=== PATIENT | male | born 1945 | race Caucasian/White ===

== ENCOUNTER 2025-03-29 07:20 | Day surgery (SDC) | payer OTHER, SELFPAY ==
[2025-03-29] VITALS (13 sets, daily range): BP systolic 112–125; BP diastolic 56–82; BMI 31.3
[2025-03-29] MEDS: NSS 268 ML IV (07:54)
[2025-03-29] MEDS: LOW STRENGTH ASPIRIN 324 MG PO (08:03)
--- NOTE | 2025-03-29 08:26 | CONSULT.STRU ---
Addendum entered and electronically signed by CLINTON Herrera 03/29/25 11:58:
From a symptomatology standpoint, patient describes increased Fatigue and FLORES.
Original Note:
Consultation
-
Date/Time Consultation Requested: 03/29/2025
Date/Time Consultation Performed: 03/29/2025
Requesting Provider: Bulmaro Henley MD
Performing Provider: CLINTON Herrera
Reason for Consultation: /TAVR
Patient History
Physicians
Family Physician: Gretchen Allison MD
Outpatient Training Instructor: Toby Ayala MD
Primary Training Instructor: Toby Ayala MD
History of Present Illness
Mr. Maravilla is a very pleasant 79 yom that has a past medical history significant for aortic stenosis aortic stenosis, Afib, Aflutter, unctional bradycardia, HTN, LATESHA, and bioprosthetic AVR ( #25 Magna). His most recent echocardiogram from
is notable for an EF 50-55%, aortic valve P/M 60/33, JOSE ROBERTO 1.43, DI 0.34, Mild-moderate AI, mild-moderate MAC, mild-moderate TR, RVSP 45. From a symptomatology standpoint, patient describes []. Discussed the pathophysiology and treatment options of
aortic stenosis including re-operative SAVR and Dontrell TAVR, Explained the evaluation process comprising of lab work, CT scan, CT surgical consult, dental clearance, and a heart team discussion. TAVR booklet, contact information, prescriptions, and
appointments given to patient. Allowed for and answered questions at bedside.
Past Medical History
Past Medical History: Arrhythmias (Afib, aflutter, junctional bradycardia), Atrial Fib, Cancer (colon), COPD, HTN, LATESHA, Valvular Disease (Bioprosthetic ) and Other (hyperlipidemia, pulmonary nodules, TAA, RLS)
Past Surgical History
Past Surgical History: Valve (#25 AVR) and Other (MAZE, AFLUTTER ABLATION, COLON RESECTION )
Dental History
Dr. Bergeron--Patient states he is UTD. Will send dental clearance form
Family History
Mother: N/A
Father: N/A
Social History
Alcohol: Daily
Drug: None
Tobacco: Former Smoker
Personal:
Living: With Spouse
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
Allergies
Allergy/AdvReac Type Severity Reaction Status Date / Time
pollen extracts Allergy runny Verified 03/29/25 08:23
nose,
watery/itchy
eyes
Home Medications
�Medication �Instructions �Recorded �Confirmed �Type
amlodipine 5 mg tablet 5 mg PO DAILY 02/22/21 03/29/25 History
apixaban 5 mg tablet (Eliquis) 5 mg PO BID 02/22/21 03/29/25 History
doxycycline hyclate 20 mg tablet 20 mg PO BID 02/22/21 03/29/25 History
lisinopril 20 mg tablet 20 mg PO HS 02/22/21 03/29/25 History
simvastatin 10 mg tablet 10 mg PO HS 02/22/21 03/29/25 History
escitalopram oxalate 20 mg tablet 20 mg PO HS 03/29/25 03/29/25 History
furosemide 20 mg tablet 20 mg PO DAILY 03/29/25 03/29/25 History
spironolactone 25 mg tablet 12.5 mg PO HS 03/29/25 03/29/25 History
STS%
STS %: 3.96
Review of Systems
-
History Source: Patient and Family
General: Reports Fatigue
HEENT: Reports No Symptoms
Respiratory: Reports SOB and FLORES
Cardiac: Reports No Symptoms
Abdomen/GI: Reports No Symptoms
: Reports No Symptoms
Musculoskeletal: Reports No Symptoms
Skin: Reports No Symptoms
Neurological: Reports No Symptoms
Vascular: Reports No Symptoms
Physical Exam
Vital Signs
Temp 97.8 F 03/29/25 07:46
Temp route: Oral 03/29/25 07:30
Pulse 81 03/29/25 08:10
Blood pressure 113/74 03/29/25 07:47
Blood pressure extremity used: Left upper arm 03/29/25 07:30
Position: Sitting 03/29/25 07:30
MAP (cuff-Alondra Monitor) 87 03/29/25 07:47
SaO2 97 03/29/25 08:10
Oxygen Mode of Delivery Room air 03/29/25 07:30
Can the patient verbally communicate their pain? Yes 03/29/25 07:30
Actual Weight 89.3 kg 03/29/25 07:30
Body Mass Index (BMI) 31.3 03/29/25 07:30
Labs
03/15/2025
HH: 15.4/44.6
Plt: 131K
BUN/Creat: 23/10.26
GFR: 59
Diagnostic Studies
ECHOCARDIOGRAM 02/10/2025
SUMMARY
1. Left ventricular ejection fraction, by visual estimation, is 50 to 55%.
2. Normal left ventricular systolic function without distinct regional wall motion abnormalities.
3. Abnormal septal motion consistent with post-operative status.
4. Concentric remodeling of the left ventricle.
5. Indeterminate LV diastolic function.
6. Right ventricular cavity size is mildly dilated with moderately decreased systolic function. (TAPSE 0.7 cm).
7. Normal left atrium by volume index (29.6 mL/m2) and normal right atrium by area (19.2 cm2).
8. Mild to moderate mitral valve regurgitation is seen.
9. #25 Magna pericardial bioprosthetic aortic valve (11/09/2006). At least moderate prosthetic stenosis and mild to moderate insufficiency.
10. AoV velocity of 3.86 m/s; Peak aortic valve gradient = 59.7 mmHg; Mean gradient = 33.0 mmHg; AoV Area by continuity equation = 1.43 cm2; AoV Dimensionless Index = 0.34.
11. Mild to moderate tricuspid regurgitation.
12. Right atrial pressure of (3 mmHg), the estimated right ventricular systolic pressure is mildly elevated at (45.3 mmHg).
13. Study done in atrial fibrillation/atrial flutter.
14. Compared to a prior TTE study from 10/28/2023, no significant changes are seen.
Procedure Type:�Isolated AVR
Perioperative Outcome Estimate %
Operative Mortality 3.96%
Morbidity & Mortality 21.1%
Stroke 1.6%
Renal Failure 5.35%
Reoperation 8.22%
Prolonged Ventilation 13.6%
Deep Sternal Wound Infection 0.168%
Long Hospital Stay (>14 days) 8.8%
Short Hospital Stay (<6 days)* 29.6%
Exam
General: Well Developed and Well Nourished
HEENT: Normocephalic
Neck: Trachea Midline
Respiratory: Clear
Cardiac: Irregular Rhythm and Murmur (II/)
GI: Soft and Non Tender
Rectal: Deferred by Provider
Skin: Warm and Dry
Neuro: Awake, Alert, Oriented and AO x 3
Psych: Calm
Assessment / Plan
-
Aortic Stenosis
Continue with TAVR evaluation
Trend creatinine after each contrast administration
TAVR CT scan ( 04/12)
CT surgery consult ( [facility] 04/25)
Frailty testing and KCCQ12 at consult
Will hold Eliquis x 48 hours prior to TAVR. Initiate aspirin while Eliquis held. D/c aspirin once Eliquis is resumed
Dental Clearance
Heart team discussion
Data Reviewed
-
EKG: Report Reviewed by me
Automatic Splicing Machine Operator: Report Reviewed by me and Discussed with Physician
Echo: Report Reviewed by me and Discussed with Physician
Labs: Labs Reviewed by me
Old Records: Reviewed
Total Time Spent with Patient (in minutes): 45
[2025-03-29] MEDS: NSS 1000 IV (09:35)
--- NOTE | 2025-03-29 09:41 | PTCARENOTE ---
Dr Henley is at pt bedside speaking to pt and pt's .
--- NOTE | 2025-03-29 09:46 | PTCARENOTE ---
Ary ALONZO, TAVR coordinator, at pt bedside speaking to pt and pt's .
[2025-03-29] MEDS: TYLENOL 1000 MG PO (10:40)
--- NOTE | 2025-03-29 12:45 | ITS.CL.CATH ---
Collision Estimator - Catheterization
Cardiac Catheterization
Procedure Report:
LEFT HEART CATHETERIZATION
Date of Procedure: March 29, 2025
Procedures performed:
1: Coronary angiography
2: Aortic root angiography
Primary Care Physician: Dr. Gretchen Renee
Primary Business Process Analyst: Dr. Toby Ayala
INDICATION: The patient is a 79-year-old man with a past medical history significant for surgical aortic valve replacement with a #25 magna bioprosthetic valve in 2006 at [facility], permanent atrial fibrillation, hypertension and
obstructive sleep apnea who is referred for cardiac catheterization in preparation for possible aortic valve intervention. [facility] was held for the procedure. The patient has had increasing exertional dyspnea and recent echo confirms severe
combined aortic bioprosthesis dysfunction with both stenosis and insufficiency.
ACCESS: The patient was prepped and draped in usual sterile fashion. A 6 Jamaican sheath was placed in the right radial artery using the Seldinger over the wire technique.
HEMODYNAMIC FINDINGS (mmHg):
LV(s/d,EDP): Valve not crossed
Ao(s/d,m): 120/68, 99
ANGIOGRAPHIC FINDINGS:
Single-plane Left Ventriculography in FOSTER Projection: Valve not crossed. Echocardiography performed on February 10, 2025 showed preserved LV systolic function with an EF of 50 to 55% with at least moderate prosthetic stenosis and mild to moderate aortic
insufficiency.
Coronary Angiography:
Dominance: Right
Left Main: Normal
Left Anterior Descending: The LAD is a medium caliber vessel that is widely patent without focal disease.
Left Circumflex: The left circumflex is a medium caliber nondominant system that gives rise to a large high first obtuse marginal branch that courses in a ramus distribution and terminates into 2 small distal OM's. These vessels are widely patent
without focal disease.
Right Coronary: The right coronary artery is a very large caliber dominant vessel that gives rise to a large caliber posterior descending artery and several medium caliber posterior left ventricular branches. The mid RCA has very mild luminal
irregularities. There is normal flow in all distal vessels.
Other angiography:
1: Despite multiple attempts to cross the valve with a wire I was unsuccessful. I elected to perform aortic root angiography to better assess severity of aortic insufficiency. This was done in the SEN projection. There was 2+ aortic insufficiency.
Fluoroscopy Time (min): 11.8
Radiation Dose (mGy): 477
DAP (Gy.cm2): 36
Closure device: None. A TR band was applied for hemostasis at the right wrist.
Complications: None.
ASSESSMENT:
1: Very mild nonobstructive coronary artery disease.
2: Moderate aortic insufficiency.
CONCLUSIONS and RECOMMENDATIONS:
1: Proceed with TAVR evaluation.
2: Continue medical therapy with clinical follow-up as scheduled.
Bulmaro eHnley M.D.
Copy to: Dr. Gretchen Renee
== END 2025-03-29 12:30 | disposition home or self-care (01) ==
LOC: CATH 07:20
PROVIDERS: ATTENDING PHYSICIAN Internal Medicine Interventional Cardiology; FAMILY PHYSICIAN Family Medicine; OTHER PHYSICIAN Internal Medicine Cardiovascular Disease
DX: I25.10 Atherosclerotic heart disease of native coronary artery without angina pectoris (principal); Z95.3 Presence of xenogenic heart valve; I48.21 Permanent atrial fibrillation; I10 Essential (primary) hypertension; G47.33 Obstructive sleep apnea (adult) (pediatric); G25.81 Restless legs syndrome; E78.49 Other hyperlipidemia; I48.92 Unspecified atrial flutter; I08.3 Combined rheumatic disorders of mitral, aortic and tricuspid valves; J44.9 Chronic obstructive pulmonary disease, unspecified; Z79.01 Long term (current) use of anticoagulants; Z79.899 Other long term (current) drug therapy; Z85.038 Personal history of other malignant neoplasm of large intestine; Z87.891 Personal history of nicotine dependence
CPT/HCPCS: 93458; 93567; C1769; C1894; Q9967

== ENCOUNTER → 2025-04-12 09:02 | Outpatient (REF) | payer OTHER, SELFPAY ==
--- NOTE | 2025-04-24 15:13 | OID.L.PAT ---
Pulmonary Nodule Pat Letter
- -
04/24/25
SOURAV BURRIS
[address] [facility]
[place], [place]
Gianni BENJAMIN,
A pulmonary nodule was seen on an imaging study done by [facility]. This was reviewed by the [facility] Pulmonary Nodule Advisory Board and the following recommendation was made:
Recommendation: Follow up CT Chest in 6 months.
If you have any questions, please do not hesitate to contact your primary care physician. If you are in need of a Physician, you can go to [email or web address] and click on 'Find a Provider'. Type 'Family Medicine' in the search.
Oncology Nurse Navigator
[facility]
[phone]
--- NOTE | 2025-04-24 15:14 | OID.L.REC ---
Pulmonary Nodule Follow Up
- Recommendation
04/24/25
Pulmonary Nodule Review Recommendations
Your patient, SOURAV BURRIS, had a pulmonary nodule seen on an imaging study done on 04/12/2025 in the [facility] Radiology Department.
This was reviewed by the [facility] Pulmonary Nodule Advisory Board and the following recommendation was made:
Recommendation: Follow up CT Chest in 6 months.
If you have any questions, please do not hesitate to contact us.
Sincerely,
Oncology Nurse Navigator
[facility]
[phone]
== END ==
LOC: RAD 09:02
PROVIDERS: ATTENDING PHYSICIAN Nurse Practitioner Acute Care; FAMILY PHYSICIAN Family Medicine
DX: I35.0 Nonrheumatic aortic (valve) stenosis (principal)
CPT/HCPCS: 74174; 75572; Q9967

== ENCOUNTER 2025-06-08 04:53 | Inpatient (IN) | payer OTHER, SELFPAY ==
--- NOTE | 2025-06-01 08:50 | HPS.HSE ---
Family Physician
-
Family Physician: Gerri Renee
Chief Complaint
-
Fatigue, FLORES
PreTAVR evaluatoin
History of Present Illness
Mr. Maravilla is a very pleasant 79 yom that has a past medical history significant for aortic stenosis aortic stenosis, Afib, Aflutter, junctional bradycardia, HTN, LATESHA, and bioprosthetic AVR ( #25 Magna). His most recent echocardiogram from
is notable for an EF 50-55%, aortic valve P/M 60/33, JOSE ROBERTO 1.43, DI 0.34, Mild-moderate AI, mild-moderate MAC, mild-moderate TR, RVSP 45. Cardiac catheterization from 03/29/2025 demonstrated very mild nonostructive CAD. From a symptomatology
standpoint, patient describes increased Fatigue and FLORES.reviewed patient with the heart team and the team is agreeable to proceed with GRACE TAVR utilizing a 29 mm Evolut via right transfemoral access.
Assessed patient in preadmission testing and confirmed medication list. Eliquis will be held, last dose 9/ pm and aspirin will be initiated while Eliquis held. He will arrive to the [facility] at 0500. Reviewed the risks of the procedure as
discussed in consult with Dr. Hagan including stroke, vascular injury, and ppm. Allowed for and answered questions to the best of my ability.
Medical History
Past Medical History
Past Medical History: Reports Arrhythmia (aflutter, junctional bradycardia ), Cancer (colon), COPD, HTN, Valvular Disease (aortic stenosis), Psychiatric (anxiety) and Other (Sleep apnea, pulmonary nodule, RLS, thoracic aortic aneurysm)
Past Surgical History: Reports Bowel Resection (colon resection ), Cardiac (AVR) and Other (cardiac ablation , MAZE)
Social History
Tobacco: Former Smoker
Alcohol: Occasional
Drug: None
Personal:
Living: With Family
Employment: Retired
Family History
Family History: Other (valve disease)
Allergies / Home Medications
Allergies reflects when Allergies were last updated in [facility].
NKDA
Home Medications with original date entered in [facility]
amLODIPine Besylate 5 MG Tablet 1 tablet Orally Once a day
Doxycycline Hyclate 20 MG Tablet 1 tablet Orally Twice a Day
Eliquis(Apixaban) 5 MG Tablet 1 tab Orally Twice a Day
Escitalopram Oxalate 20 MG Tablet 1 tablet Orally Once a Day
Flonase 50 MCG/ACT Suspension 1 spray in each nostril Nasally Twice a day
Furosemide 20 MG Tablet 1 tablet Orally Once a day
Lisinopril 20 MG Tablet 1 tablet Orally Once a Day
Simvastatin 10 MG Tablet 1 tab Orally Once a Day
Spironolactone 25 MG Tablet 1 tablet Orally Once a day
Trelegy Ellipta(Jofklprtyfh-Lpqltcvza-Ditdgd) 200-62.5-25 MCG/ACT Aerosol Powder Breath Activated 1 puff Inhalation Once a day
Allergy/Medication List:
NKDA
Review of Systems
-
A 12 point ROS was completed and negative except as noted: Yes
Constitutional: Reports Fatigue
Physical Exam
Physical Exam
General: Well Developed, Well Nourished, No Apparent Distress and Comfortable
HEENT: NormoCephalic
Respiratory: Clear
Cardiac: Irregular Rhythm and Murmur (ii/ MUKESH)
Breast: Deferred by me
GI: Soft, Non Tender and Non Distended
Rectal: Deferred by Provider
Genito-urinary: Deferred by me
Musculoskeletal: No Edema
Skin: Warm and Dry
Neuro: Awake, Alert, Oriented and AO x 3
Psych: Calm
Data Reviewed
-
Diagnostic Radiology: Report Reviewed by me
CT Scan: Report Reviewed by me and Discussed with Physician (reviewed TAVR CT scan with the heart team)
Medical Tests (Nuc Med, Echo, EKG etc): Report Reviewed by me and Discussed with Physician (echocardiogram and cardiac catheterization reviewed with the heart team)
Lab Data: Labs Reviewed by me
Old Records: Reviewed
Impression/Plan
-
IMPRESSION/PLAN:
Aortic stenosis of bioprosthetic AVR
TF GRACE TAVR planned with Drs. Elder and Suhas utilizing a 29mm Evolut FX+
Hold Eliqus x 48 hour. Initiate aspirin while Eliquis held. D/c aspirin when Eliquis resumed
POD#1/#30 echocardiogram
Cardiac rehab consult
Labs
-
Labs:
WBC 13.0 10^3/uL (4.8-10.8) H 06/02/25 10:14
RBC 4.05 10^6/uL (4.70-6.10) L 06/02/25 10:14
Hgb 13.5 g/dL (13.0-18.0) 06/02/25 10:14
Hct 39.2 % (39.0-52.0) 06/02/25 10:14
Plt Count 194 10^3/uL (130-400) 06/02/25 10:14
[2025-06-02 10:18] VITALS: BMI 31.5
[2025-06-02 11:51] LABS: Hematocrit 39.2 % (39.0-52.0); Hemoglobin 13.5 g/dL (13.0-18.0); Mean Corp Hgb Conc. 34.4 g/dL (33.0-37.0); Mean Corpuscular Volume 96.8 fL (80.0-94.0); Nucleated Red Blood Cells % 0 % (-); Platelet Count 194 10^3/uL (130-400); Red Cell Dist. Width 12.9 % (11.5-14.5); Urine Character Clear (Clear)
[2025-06-02 12:01] LABS: INR 1.27; PT 16.2 Sec (11.4-14.6)
[2025-06-02 12:15] LABS: ALT (SGPT) 21 U/L (0-50); AST (SGOT) 27 U/L (17-59); Albumin 4.5 g/dl (3.5-5.0); Alkaline Phosphatase 95 U/L (38-126); Blood Urea Nitrogen 23 mg/dl (9-20); Calcium 9.2 mg/dl (8.4-10.2); Carbon Dioxide 26 mmol/L (22-30); Chloride 102 mmol/L (98-107); Estimated Creatinine Clearance 65 ml/min; Glucose 89 mg/dl (70-99); Potassium 4.5 mmol/L (3.5-5.1); Sodium 135 mmol/L (135-145); Total Protein 7.3 g/dl (6.3-8.2); eGFR > 60.00
[2025-06-02 12:32] LABS: Glycohemoglobin (HgbA1c) 5.6 % (4.0-5.6)
--- NOTE | 2025-06-02 16:24 | CM ---
spoke to pt in PAT's, we discussed preop TAVR teaching including driving and lifting restrictions. has the TAVR educ book, soap and instructions. he is agreeableto a f/u appt with the CT Transitional care nurses after dc. he is prev indep, lives
with his in a 1 story home with 1 step to enter. cm role explained and all questions answered. plan is for TAVR 06/08.
[2025-06-08] VITALS (24 sets, daily range): BP systolic 95–146; BP diastolic 53–99; PULSE 70; BMI 30.6
--- NOTE | 2025-06-08 05:44 | PTCARENOTE ---
Admitted patient to IVU. Afib on the monitor, HR in the 80s. VSS on room air. Alert and oriented. Confirmed NPO since midnight and 81 mg Aspirin taken. Admission assessment completed. Clipped and CHG wiped pt. Fall risk bracelet applied. Pedal
pulses marked. Patient in room with .
--- NOTE | 2025-06-08 06:19 | W.CVOR.SURPR ---
CVOR Surgeon Immed Pre Op
-
I have examined this patient prior to performance of the scheduled procedure.
The patient's condition is unchanged from the time of the dictated/written History and
Physical and the patient is able to undergo the scheduled procedure.
TF TAVR in Valve
Full Rescue
--- NOTE | 2025-06-08 08:55 | W.PN.CT.SURG ---
CT Surgery Operative Note
-
OPERATIVE REPORT
Preoperative Diagnosis: Severe aortic valve stenosis with moderate degree of insufficiency of a bioprosthetic aortic valve, symptomatic
Postoperative Diagnosis: Same
Procedure(s) Performed: Right trans femoral TAVR in SAVR with a 29 mm Medtronic Evolut FX+ device
Date of Procedure: 06/08/2025
Comorbidities:
1. Severe symptomatic aortic stenosis of a bioprosthetic aortic valve with moderate degree of insufficiency and some perivalvular leak
2. Atrial fibrillation atrial flutter and junctional bradycardia
3. Multiple PVCs
4. COPD
5. Anxiety
6. Hypertension
7. Hyperlipidemia
8. Pulmonary nodules with restrictive lung disease
9. Mild thoracic aortic aneurysm
10. History of colonic cancer
Cardiac Surgeon: Hugo Elder MD, MS & Yenny Ley MD
School Commissioner: Ankur Dai MD
Anesthesia: Conscious Sedation, Local
EBL: 100cc
Products: none
Implant: Medtronic Evolut 29 mm FX + SN: [id number]
Indication(s) for Procedures: 79-year-old male with severe aortic stenosis with mild degree of aortic valve insufficiency secondary to degeneration of his bioprosthetic aortic valve that was replaced over 17 [address] ago[address]-TAVR protocol
revealed acceptable anatomy for a self-expanding TAVR valve inside a SAVR valve.
Start time: 0756hrs
Deployment time: 0834hrs
End time: 0848hrs
Radiation Dose (mGy): 385
DAP (cm2.Gy): 36.1
Fluoroscopy time (minutes): 11.6
Contrast volume (ml): 30
TAVR gradient (mmHg): 7-8mmHg
Heparin Dose: 7000+1000units
Protamine Dose: 30mg
Final Valve Positioninmm and 3mm inside the stent frame of the SAVR at the bottom
LVEPD (mmHg): 25mmHg
Findings: Preoperative LVEF was 55% and was 55% following TAVR without inotropic support. Function was overall normal without regional wall motion abnormalities or dyskinesia. The aortic valve was well seated with only mild to moderate PVL that
appeared to be the same existing PVL with his SAVR. The patient did not require pacing postoperative and was in sinus rhythm although he did have a transient new bundle branch block during the procedure. There was successful placement of 29 mm
Evolut FX+ TAVR valve without acute complications.
Access:
1. Device -right common femoral artery, perclose x 2
2. 5Fr sheath for arterial line monitoring on the left-left common femoral artery + manual hold
3. Transvenous Pacer -left common femoral vein
Description of Procedure: The patient was taken to the labeling machine operator. Their identity and procedure to be performed were verified and they were positioned supine on the labeling machine operator table. Induction via conscious sedation with local analgesia. The patient was
then prepped and draped from chin to thigh in a sterile fashion. A preoperative time-out was performed with all members of the team present. Using fluoroscopy, bilateral femoral heads and their margins were identified. Arterial and venous access
were done with a micropuncture needle with Seldinger technique. Test pacing revealed capture with excellent threshold. Angiography confirmed proper puncture site and femoral artery integrity. Two Per-Close devices were used on the TAVR side. After
lining up the stent frame of the prosthetic aortic valve with 2 struts on the left and 1 on the right and the valve base and a coplanar view an AL1 catheter with a J-wire was used to access the LV. This was exchanged for a J pigtail and an LVEPD
was measured. We then exchanged this for a double curved Lunderquist Wire. The valve was prepped and mounted on to the device carrier. An ACT of >250 was achieved. We verified x 3 under fluoroscopy that the valve was mounted correctly with paddles
in appropriate position. We than set our parameters to achieve a co-planar view by aligning up the frame posts with 2 on the left and 1 on the right and the base of the frame coplanar. We advanced the device with it's in-line sheath into the
descending thoracic aorta and over the arch into the root and positioned across the aortic valve. We performed a quick pre-deployment time out. The valve was slowly deployed to just before annular contact with the SAVR valve. We then rotated FRISIAN and
removed any parallax from the SAVR valve. Using the SAVR stent frame as our marker, we determined that the core valve was positioned at the bottom of the stent frame. We slowly continued to deploy the valve until the crowns and paddles were free
from the device. We slowly continued to deploy the valve until the crowns and paddles were free from the device. The deployment device was withdrawn into the descending thoracic aorta while maintaining wire access across the valve. A transthoracic
echocardiogram was performed. There was the same PVL that was pre-existing and no obvious intra-valvular AI between the SAVR and core valve that was appreciated. The device was removed from the groin as we cinched down the perclose devices while
maintaining wire access. There was acceptable hemostasis. The pigtail was repositioned into the descending/abdominal and runoff aortogram was performed. There was no significant stenosis or dissection of the bilateral iliofemoral systems with
excellent runoff to the SFAs. All wires were removed and perclose snugged and cut. There was acceptable hemostasis of bilateral groins.
All instrument, sponge, and needle counts were confirmed to be correct x 2 at the end of the operation. The patient was transferred to the cardiac intensive care unit in stable condition.
I, Dr. Hugo Elder, was present, scrubbed for, and performed all critical elements of this procedure.
Hugo Elder MD, MS
Cardiothoracic Surgeon
[facility]
This operative dictation was created using the [employer] dictation system. Please excuse any grammatical, typographical, or 'sound alike' errors
[2025-06-08] MEDS: LEVOPHED 250 IV (09:17)
[2025-06-08 09:26] LABS: ACT-LR - POC 258 Seconds (116-155)
--- NOTE | 2025-06-08 10:23 | ITS.CL.TAVR ---
Optical Mechanic - TAVR Report
TAVR PRocedure
Procedure Report:
TRANSCATHETER AORTIC VALVE REPLACEMENT
Date of Procedure: June 08, 2025
Referring: Dr. Toby Ayala
Operators: Drs. Hugo Elder and Ankur Dai
PROCEDURE PERFORMED:
1. Successful placement of 29 mm Medtronic Evolut Pro+ valve via right femoral artery.
PREPROCEDURE NYHA CLASS: 3
DESCRIPTION OF PROCEDURE: The patient was referred for assessment of severe symptomatic aortic stenosis and following a comprehensive evaluation it was felt that transcatheter aortic valve replacement (TAVR) would be the most appropriate treatment.
Informed consent was obtained prior to the procedure. A 'time-out' was called and the procedural plan was verbally confirmed by anesthesia, surgery, perfusion, and laborer wharf staff.
Arterial access was obtained in the left common femoral artery and a 5 Fr. sheath was inserted. Venous access was obtained in the left common femoral vein and a 6 Fr sheath was inserted. Angiography through the right femoral sheath demonstrated an
access in the common femoral artery bifurcation. Arterial access in the right common femoral artery and a 6 Fr. sheath was inserted.
A 5 [place] transvenous pacing wire was advanced to the right ventricle where excellent pacing thresholds were obtained. Preclosure was performed on the left common femoral arterial access site using 2 Perclose devices and was followed by placement
of an 8 [place] femoral sheath. An AL-1 catheter was then advanced over J guidewire to the proximal ascending aorta. The J-wire was removed. The stenotic aortic leaflets were probed with a soft-tipped straight wire. Unfortunately, the straight
wire would not cross. A table J-wire fortunately did the stenotic leaflets of the bioprosthetic valve. The J-wire was advanced to the left ventricular apex and the EDP was measured with an angled pigtail catheter at 24 mmHg.
A Double Curve Lunderquist was advanced to the left ventricular apex. A 29 mm Evolut valve was assessed under fluoroscopy over the lung field. The paddles were within the delivery device pockets and there was no significant valve overlap. At this
point, the existing 8 [place] right common femoral sheath was removed and exchanged for the Evolut InLine delivery system. The 29 mm Evolut Pro+ valve was advanced across the aortic arch in the CZECH projection. The image intensifier was moved to a
steep caudal view allowing for overlap of the bioprosthetic valve stent frame post. The 29 mm Evolut Pro+ valve was positioned with the radiopaque marker at the base of the bioprosthetic valve. Slowed appointment was undertaken until the stent was
flared achieving contact with the bioprosthetic frame. Rapid pacing was undertaken and we rotated quickly through the rumble strips. Pacing was terminated after functional valve was in position. The image intensifier was rotated to an CZECH cranial
position to remove parallax from the valve. Valve depth appeared appropriate and slow deployment was performed until the valve frame and paddles were released from the delivery system. The post deployment mean gradient by echocardiogram was 8 mmHg
and there was mild to mild-moderate paravalvular aortic insufficiency noted. There was some degree of paravalvular aortic insufficiency noted before the procedure around the bioprosthetic valve.
The Evolut Pro+ delivery system capsule was reunited to the body of the delivery system. The Evolut InLine sheath was removed and the Perclose knots were advanced to the arteriotomy site resulting in excellent hemostasis.
Fluoro Time (min): 11.6, Dose (mGy): 385, DAP (Gy.cm2) : 36.1
CONCLUSIONS:
1. Severe symptomatic aortic stenosis. Successful deployment of a 29 mm Evolut Pro+ valve with mild to mild-moderate likely paravalvular aortic insufficiency post procedure
2. Successful arteriotomy closure with 2 Perclose devices.
Copy to: Dr. Toby Ayala
--- NOTE | 2025-06-08 11:15 | PTCARENOTE ---
pt received post TAVR to room 2248. Pt drowsy, arouses to voice. AAOx3. denies pain. a fib heart rate in 60s. left dp pulse by doppler. right dp palpable. pt on 2L nasal cannula, sat 99%. lung sounds clear. hypoactive bowel sounds. bilateral groin
sites CDI. pt and updated on plan of care. see worklist for full nursing assessment and interventions.
[2025-06-08] MEDS: ANCEF 10 IV ×2 (11:36→11:37)
--- NOTE | 2025-06-08 11:58 | CM ---
pt in OR today, cm following.
--- NOTE | 2025-06-08 15:02 | PTCARENOTE ---
weaned off levophed. assisted OOB with standby assist. ambulated to bathroom to void. bilateral groin sites CDI. pt states he is not hungry at this time but denies nausea.
[2025-06-08] MEDS: ANCEF 5 IV (15:54)
[2025-06-08] MEDS: LIPITOR 10 MG PO (22:28)
[2025-06-08] MEDS: LEXAPRO 20 MG PO (22:28)
[2025-06-08] MEDS: ALDACTONE 12.5 MG PO (22:29)
--- NOTE | 2025-06-09 00:28 | PTCARENOTE ---
received patient at the change of shift. AAOx3. neuro intact. Afib on tele 60s-80s. bp stable. denies any pain/sob. b/l groin site intact. L DP pulse-+ doppler. R DP pulse palpable. sites marked. reviewed plan of care with patient and verbalized
understanding. call reynaga within reach. makes needs known.
patient wears own cpap at home. order placed by Saar MILLER. patient tolerated hospital cpap for about 30 minutes. 'its hurting my nose.' placed on 2L for the night. patient agreeable to plan of care.
[2025-06-09 03:55] VITALS: BP 122/62
[2025-06-09 04:53] LABS: Hematocrit 35.8 % (39.0-52.0); Hemoglobin 12.9 g/dL (13.0-18.0); Mean Corp Hgb Conc. 36.0 g/dL (33.0-37.0); Mean Corpuscular Volume 96.5 fL (80.0-94.0); Platelet Count 164 10^3/uL (130-400); Red Cell Dist. Width 12.9 % (11.5-14.5)
--- NOTE | 2025-06-09 05:02 | W.PN.CT ---
Today's Communication / Plan
-
-pod #1
-no issues overnight
-groins are soft b/l
-chronic a-fib 70s-80s overnight with brief PVCs or aberrancy. No bradycardia or pauses
-incomplete RBBB preop. ECG without change
-Echo today
-Meds (Aldactone, Lipitor, Lexapro, Doxycycline). Will need to restart Eliquis for a-fib
-possible d/c home
Assessment / Plan
-
- Severe symptomatic aortic valve stenosis with moderate degree of insufficiency of a bioprosthetic aortic valve- s/p Right trans femoral TAVR in SAVR with a 29 mm Medtronic Evolut FX+ device on 06/08/25, pod #1
- LVEPD (mmHg): 25mmHg
- Intraop TTE: LVEF was 55% preo and post without regional wall motion abnormalities or dyskinesia. The aortic valve was well seated with only mild to moderate PVL that appeared to be the same existing PVL with his SAVR.
- Transient new bundle branch block during the procedure
- Severe symptomatic aortic stenosis of a bioprosthetic aortic valve with moderate degree of insufficiency and some perivalvular leak
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
- Pre-existing incomplete RBBB
- Multiple PVCs
- COPD
- Anxiety
- Hypertension
- Hyperlipidemia
- Pulmonary nodules with restrictive lung disease
- Mild thoracic aortic aneurysm
- History of colonic cancer
Discussed patient care with: Nursing and Care Team
Subjective
-
Date of Service: June 09, 2025
Objective Data
-
Lab Results
06/09/25 03:59
PT 16.2 Sec (11.4-14.6) H 06/02/25 10:14
INR 1.27 06/02/25 10:14
Vital Signs
Vital Signs
Temp Pulse Resp BP Pulse Ox
97.9 F 75 18 122/62 96
06/09/25 03:55 06/09/25 04:00 06/09/25 03:55 06/09/25 03:55 06/09/25 03:55
CT Intake/Output/Weight
06/08/25 06/08/25 06/09/25
06:59 18:59 06:59
Intake Total 1695 / 2095 400 / 2095
Output Total 975 / 975
Balance 1695 / 1120 -575 / 1120
SaO2: 96
Physical Exam
-
General: Awake and AOx3
Cardiovascular: Irregular rate & rhythm and Murmur (10/10 systolic @ rsb)
Respiratory: Clear
Incision: Other (groins are cdi, soft, nontender, no hematoma b/l)
Extremities: No Edema (DPs by Doppler b/l)
Abdomen: soft, nontender, nondistended, + bowel sounds
Data Reviewed
-
Lab Results: Results Reviewed
Medications: Active Meds Reviewed
Chest X-Ray: Report Reviewed and Image Reviewed
ECG: Report Reviewed and Image Reviewed
[2025-06-09 05:18] LABS: Blood Urea Nitrogen 14 mg/dl (9-20); Calcium 8.3 mg/dl (8.4-10.2); Carbon Dioxide 24 mmol/L (22-30); Chloride 106 mmol/L (98-107); Estimated Creatinine Clearance 82 ml/min; Glucose 104 mg/dl (70-99); Potassium 4.5 mmol/L (3.5-5.1); Sodium 135 mmol/L (135-145); eGFR > 60.00
[2025-06-09 07:52] VITALS: BP 148/82
--- NOTE | 2025-06-09 09:48 | W.DCSUMMARY ---
Discharge Summary
Discharge Data
Date of Admission: 06/08/25
Date of Discharge: 06/09/25
-
Pending Results: No
Hospital Course
Primary care physician: Gretchen Laguna
Outpatient mercury purifier: Todd Ford
Inpatient consultants: [facility] Cardiology
Procedures:
1. TAVR
Primary Diagnosis:
1. 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
Secondary Diagnoses:
1. 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
2. Pre-existing incomplete RBBB
3. Multiple PVCs
4. COPD
5. Anxiety
6. Hypertension
7. Hyperlipidemia
8. Pulmonary nodules with restrictive lung disease
9. Mild thoracic aortic aneurysm
10. History of colonic cancer s/p resection
11. LATESHA on CPAP
HPI: 79-year-old male was electively admitted on 06/29 for TAVR procedure due to prosthetic aortic stenosis.
Hospital course: Patient was taken to the operating room and underwent a right transfemoral TAVR #29 Evolut FX+ with Drs. Hugo Elder and Ankur Dai. For further details, please see operative report. Patient was on Levophed for a brief time in
recovery and was quickly discontinued. Postprocedure ECG reported atrial fibrillation with incomplete right bundle branch block. Remained stable overnight and B/L groin sites intact without bleeding or hematoma. Morning ECG reported A-fib with
controlled rate and chest x-ray without acute pulmonary abnormality. Predischarge TTE reported an EF of 60%, mild to moderate mitral regurgitation and aortic valve gradients of 17/8 mmHg with mild paravalvular aortic regurgitation. Labs stable on
discharge: Hb 12.9; Plt 164k; Creat 0.8. Patient ambulated in halls and deemed stable for discharge to home.
Home medication changes:
none
Discharge Plan
-
Patient Disposition: Home (Routine Discharge)
Discharge Diagnosis/Procedures: Right TF TAVR #29mm Evolut (06/08/25)
Condition: Good
Diet: Low Fat, Low Cholesterol and 2 Gram Sodium
Activity: No restrictions
Driving Restrictions: No driving for 1 week
Bathing Restrictions: OK to Shower
Others Tests: Please call Dr. Ayala's office to schedule a 30-day follow up echocardiogram
Other Services: Cardiac Rehab
Wound Care: No lotions, powders, or creams to puncture sites
Specialty Instructions: Weigh Daily- Call MD for wt gain/loss 3 lbs overnight/5 lbs in 1 week
Referrals:
CT Transitional Care Nurse [Outside]
Referral Note:
The Cardiothoracic Transitional Care Nurse will call you to set up a visit in 1-2 days.
Bulmaro Ayala MD [Affiliate, Cardiology] - 07/10/25 1:30 pm
Referral Note: your appt on 06/19 with Brigida Parrish NP was CANCELLED
Gretchen Renee DO [Family Provider, Family Practice]
Prescriptions:
Continued
guaifenesin 600 mg Tablet Extended Release
600 mg PO BID
simvastatin 10 MG tablet
10 mg PO HS Qty: 0 0RF
spironolactone 25 mg Tablet
12.5 mg PO HS Qty: 0 0RF
escitalopram oxalate 20 mg Tablet
20 mg PO HS Qty: 0 0RF
Eliquis 5 MG tablet
5 mg PO BID Qty: 0 0RF
aspirin 81 mg Tablet
81 mg PO DAILY Qty: 0 0RF
lisinopril 20 MG tablet
20 mg PO HS Qty: 0 0RF
amlodipine 5 MG tablet
5 mg PO DAILY Qty: 0 0RF
furosemide 20 mg Tablet
20 mg PO DAILY Qty: 0 0RF
doxycycline hyclate 20 MG tablet
20 mg PO BID Qty: 0 0RF
Trelegy Ellipta 200-62.5-25 mcg Blister With Device
1 inh INHALATION DAILY Qty: 0 0RF
Discharge Orders:
Discharge Patient (As Directed); Ordered 06/09/25
Ordered By: Delmis Knight
Care Plan Goals
Care Plan Goals:
Problem: Readiness for enhanced knowledge related to diagnosis and treatment plan
Goal: Understand your diagnosis and treatment plan needs, including medications if applicable.
Instructions: Know your diagnosis, underlying causes and treatment plan options, including medications if applicable. Consult with your health care team to learn about your diagnosis and treatment plan, including medications if applicable.
Discharge Date and Time
Print Language: COMORAN
--- NOTE | 2025-06-09 10:14 | W.PN.ANS.POP ---
Anesthesia Post Operative
- Anesthesia Post Op Note
Vital Signs Stable-See Nursing Note: Yes
Airway Patent: Yes
Adequate Pain Control: Yes
Change in Mental Status: No
Current Postoperative Nausea & Vomiting: No
Anesthesia Complications: No
General Anesthetic Recall: No
Unplanned Admission: No
Post Op Hydration Adequate: Yes
[2025-06-09 10:30] VITALS: BP 121/68
[2025-06-09 10:45] VITALS: BP 132/76
[2025-06-09 11:54] VITALS: BP 135/70
[2025-06-09 12:09] VITALS: BP 121/68; BP 132/76; PULSE 80
--- NOTE | 2025-06-09 12:51 | W.PN.CARDCBS ---
Addendum entered and electronically signed by Ankur Perdomo MD 06/09/25 18:43:
Patient feels well, status post TYE 06/08/2025
135/70, pulse 83 and regular, respiratory rate 15, afebrile, head neck exam unremarkable, regular rate and rhythm, no obvious murmurs, JVD okay, puncture sites intact, lungs are clear
Chest x-ray cardiomegaly
ECG: A-fib, controlled ventricular response, RSR prime
Hemoglobin is 12.9, BUN and creatinine are 14 and 0.86
Echo 06/09/2025: EF 60%, mild to moderate MR, mild paravalvular AI, peak/mean gradient 17/8 mmHg, no change from 06/29
Impression:
Stable status post TYE
Restart Eliquis
Okay for discharge
Original Note:
Today's Communication / Plan
-
Doing well status post TAVR
Resuming Eliquis tonight
Outpatient follow-up with [facility]
For DC
Impression / Plan
-
Primary Cnc Cutting Operator: Dr. Ayala of [facility]
Assessment:
Severe symptomatic and mod AI with bioprosthetic AV status post R TF TAVR #29mm Medtronic Evolut 06/08/25
History of bioprosthetic AVR 2006 at [facility]
Permanent atrial fibrillation
History of typical atrial flutter
Status post ablation 02/2021
Chronic incomplete RBBB
PVCs
Hypertension
HLD
LVH
COPD
Pulm nodules
LATESHA
Anxiety
History of colon cancer
Echo 10/28/2023: EF 50 to 55%, peak/mean aortic gradient 16/33 mmHg
Echo 02/10/2025: EF 50 to 55%, abnormal septal motion consistent with postop status, concentric remodeling of LV, mild to moderate MR, #25 magna pericardial bioprosthetic aortic valve with at least moderate prosthetic stenosis and mild to moderate
aortic insufficiency with peak/mean gradients 60/33 mmHg, JOSE ROBERTO 1.43 cm�, mild to moderate TR, in afib during study
Echo 06/08/25: EF 55 to 60%, status post TAVR with mild aortic paravalvular leak observed, mean gradient 8 mmHg, no pericardial effusion
Echo 06/09/2025: EF 60%, MAC, mild to moderate MR, dilated LA, number 29 mm Medtronic Evolut TAVR valve with peak/mean gradient 17/8 mmHg, mild paravalvular AR, study similar to 06/08
Plan:
- Status post valve in valve TAVR 06/08/2025
- Doing well overnight without complaints
- Already feels as though his breathing is improving
- Echocardiogram from 06/09 as above, stable compared to prior from 06/08
- in rate controlled afib with occasional PVCs on review of tele overnight. reportedly had transient new bundle post procedure which resolved without noted recurrence. Of note, he does have known incomplete right bundle branch block at baseline
- Hemoglobin stable at 12.9. Resume Eliquis this evening. Denies groin pain or issues
- Discussed activity restrictions with patient and at bedside
- cardiac rehab
- He is eager for discharge
- Outpatient follow-up with [facility]
- Discussed with CT surgery MANAGER PRESENTATION, nursing
Progress Note - Cnc Cutting Operator
Subjective
Date of Service: June 09, 2025
Feeling well. Eager for discharge
Objective
Labs:
06/09/25 03:59
06/09/25 03:59
Labs
Hgb 12.9 g/dL (13.0-18.0) L 06/09/25 03:59
Hct 35.8 % (39.0-52.0) L 06/09/25 03:59
Plt Count 164 10^3/uL (130-400) 06/09/25 03:59
PT 16.2 Sec (11.4-14.6) H 06/02/25 10:14
INR 1.27 06/02/25 10:14
Sodium 135 mmol/L (135-145) 06/09/25 03:59
Potassium 4.5 mmol/L (3.5-5.1) 06/09/25 03:59
BUN 14 mg/dl (9-20) 06/09/25 03:59
Creatinine 0.8 mg/dL (0.7-1.3) 06/09/25 03:59
Glucose 104 mg/dl (70-99) H 06/09/25 03:59
Vital Signs and I&O:
Vital Signs
Temp Pulse Resp BP Pulse Ox
98.3 F 61 15 122/62 96
06/09/25 11:53 06/09/25 11:53 06/09/25 11:53 06/09/25 03:55 06/09/25 11:53
Vital Signs
Temp Pulse Resp BP Pulse Ox
98.3 F 61 15 122/62 96
06/09/25 11:53 06/09/25 11:53 06/09/25 11:53 06/09/25 03:55 06/09/25 11:53
Intake & Output
06/07/25 06/08/25 06/09/25 06/10/25
07:59 07:59 07:59 07:59
Intake Total 2095 / 5
Output Total 975 / 975 150 / 150
Balance 1120 / 1120 -150 / -150
Physical Exam
Physical Exam
GEN: No distress, awake, alert, oriented x3
HEENT: supple, anicteric, mmm, EOMI
LUNGS: CTA bilaterally, no wheezes/rales
CV: Irreg, S1/S2, 1/6 syst LSB
ABD: soft, BS+, NT/ND
EXT: No cyanosis, clubbing, edema
NEURO: Gross non-focal
SKIN: Warm, pink, dry. No rash
== END 2025-06-09 14:48 | disposition home or self-care (01) | DRG 267 ==
LOC: IVU 04:53
PROVIDERS: Nurse Practitioner; ADMITTING PHYSICIAN Thoracic Surgery (Cardiothoracic Vascular Surgery); CONSULT PHYSICIAN Internal Medicine Interventional Cardiology; FAMILY PHYSICIAN Family Medicine
PROC: 02RF38Z Replacement of Aortic Valve with Zooplastic Tissue, Percutaneous Approach (ICD-10-PCS; 2025-06-08)
DX: T82.857A Stenosis of other cardiac prosthetic devices, implants and grafts, initial encounter (principal); I48.3 Typical atrial flutter; I10 Essential (primary) hypertension; G25.81 Restless legs syndrome; F41.9 Anxiety disorder, unspecified; G47.33 Obstructive sleep apnea (adult) (pediatric); I71.20 Thoracic aortic aneurysm, without rupture, unspecified; J44.9 Chronic obstructive pulmonary disease, unspecified; I45.10 Unspecified right bundle-branch block; R00.1 Bradycardia, unspecified; R91.1 Solitary pulmonary nodule; I25.10 Atherosclerotic heart disease of native coronary artery without angina pectoris; I48.91 Unspecified atrial fibrillation; I49.3 Ventricular premature depolarization; E78.5 Hyperlipidemia, unspecified; J98.4 Other disorders of lung; Y71.2 Prosthetic and other implants, materials and accessory cardiovascular devices associated with adverse incidents; Z87.891 Personal history of nicotine dependence; Z79.01 Long term (current) use of anticoagulants; Z85.038 Personal history of other malignant neoplasm of large intestine
CPT/HCPCS: 33361; 36415; 71045; 71046; 80048; 80053; 81003; 82248; 83036; 83880; 85025; 85027; 85347; 85610; 86850; 86900; 86901; 86920; 87070; 93005; 93308; 93321; 93325; 94660; C1760; C1769; C1894; Q9967